=== PATIENT | female | born 1960 | race Caucasian/White ===

== ENCOUNTER 2021-01-13 08:37 | Emergency (ER) | payer BC ==
[~2021-01-13] VITALS: Ht 167.6 cm; Wt 94.9 kg
[2021-01-13] MEDS ORDERED: LEVOTHYROXINE175 MC1 PO (08:59)
[2021-01-13] MEDS ORDERED: COQ-10100 MG PO (09:00)
[2021-01-13] MEDS ORDERED: VITAMIN D3 COM1 EACH PO (09:01)
[2021-01-13] MEDS ORDERED: VITAMIN B COMP1 EAC1 PO (09:02)
[2021-01-13] MEDS ORDERED: SELENIUM200 MC2 PO (09:04)
--- NOTE | 2021-01-13 15:50 | EKG ---
[facility] [address] [facility] [place], [place] [address] Signed Normal sinus rhythm Normal ECG No previous ECGs available Confirmed by EDWIN MCCRARY MD ([id number]) on 01/13/2021 3:49:41 PM Electronically Signed By: EDWIN MCCRARY MD 01/13/21 1550 PATIENT NAME: THERESE YOUNG Electrocardiogram DATE OF : 62 PHYSICIAN: EDWIN MCCRARY MD REPORT #: [id number] REPORT IS CONFIDENTIAL AND NOT TO BE RELEASED WITHOUT AUTHORIZATION
== END 2021-01-13 10:35 | disposition home or self-care (01) ==
LOC: ED 08:37
DX: K80.20 Calculus of gallbladder without cholecystitis without obstruction (principal); E78.5 Hyperlipidemia, unspecified; Z88.5 Allergy status to narcotic agent; Z88.3 Allergy status to other anti-infective agents; Z79.899 Other long term (current) drug therapy
CPT/HCPCS: 71045; 76705; 80053; 83690; 84484; 85025; 93005; 93010; 99285-25